=== PATIENT | male | born 1960 | race Caucasian/White ===

== ENCOUNTER 2024-07-15 15:31 | Inpatient (IN) ==
[2024-07-15] MEDS ORDERED: TORADOL TAB PO PRN (15:51)
[2024-07-15] MEDS: LOVENOX INJ 40 MG SYR SC SCH (17:13)
[2024-07-15] MEDS: NORCO 10/325 TAB PO SCH (17:15)
[2024-07-15] MEDS ORDERED: NS 250 ML IV 0 ML IV ONE (21:18)
[2024-07-15] MEDS: ANCEF VIAL 1 GRAM IVP SCH (21:34)
[2024-07-16 05:31] LABS: BASOPHILS # (AUTO) 0.1 X10^3/uL (0.0-0.1); BASOPHILS % (AUTO) 1.3 % (0.2-1.0); EOSINOPHILS # (AUTO) 0.2 x10^3/uL (0.0-0.2); EOSINOPHILS % (AUTO) 2.4 % (0.9-2.9); HEMATOCRIT 37.4 % (42.0-54.0); HEMOGLOBIN 12.8 g/dL (13.5-18.0); LYMPHOCYTES # (AUTO) 1.5 X10^3/uL (1.3-2.9); LYMPHOCYTES % (AUTO) 22.4 % (21.0-51.0); MEAN CORPUSCULAR HEMOGLOBIN 31.5 pg (27.0-34.0); MEAN CORPUSCULAR HGB CONC 34.4 g/dL (33.0-35.0); MEAN CORPUSCULAR VOLUME 91.7 fL (80.0-100.0); MEAN PLATELET VOLUME 7.8 fL (7.4-11.0); MONOCYTES # (AUTO) 0.9 x10^3/uL (0.3-0.8); MONOCYTES % (AUTO) 13.4 % (0.0-13.0); NEUTROPHILS % (AUTO) 60.5 % (42.0-75.0); PLATELET COUNT 227 X10^3/uL (150.0-450.0); RED BLOOD COUNT 4.08 X10^6/uL (4.7-6.0); WHITE BLOOD COUNT 6.7 X10^3/uL (3.6-10.0)
[2024-07-16 05:47] LABS: ALANINE AMINOTRANSFERASE 19 Units/L (12-78); ALBUMIN 2.9 g/dL (3.4-5.0); ALKALINE PHOSPHATASE 50 Units/L (46-116); ASPARTATE AMINO TRANSFERASE 13 Units/L (15-37); BLOOD UREA NITROGEN 13 mg/dL (7-18); CALCIUM 8.7 mg/dL (8.5-10.1); CARBON DIOXIDE 30.9 mmol/L (21-32); CHLORIDE 104 mmol/L (98-107); COR CA(FOR HYPOALB) 9.6 mg/dL (8.5-10.1); COR NA(FOR HYPERGLY) 142 mmol/L (136-145); CREATININE 0.98 mg/dL (0.70-1.30); GLUCOSE 120 mg/dL (65-99); POTASSIUM 4.4 mmol/L (3.5-5.1); SODIUM 142 mmol/L (136-145); TOTAL PROTEIN 6.6 g/dL (6.4-8.2); eGFR NON BLACK RACES > 60 (>60)
[2024-07-16] MEDS: ZESTRIL TAB 10 MG PO SCH (08:28)
[2024-07-17 06:09] LABS: BASOPHILS # (AUTO) 0.1 X10^3/uL (0.0-0.1); BASOPHILS % (AUTO) 1.2 % (0.2-1.0); EOSINOPHILS # (AUTO) 0.2 x10^3/uL (0.0-0.2); HEMATOCRIT 35.1 % (42.0-54.0); HEMOGLOBIN 11.9 g/dL (13.5-18.0); LYMPHOCYTES # (AUTO) 1.1 X10^3/uL (1.3-2.9); LYMPHOCYTES % (AUTO) 18.9 % (21.0-51.0); MEAN CORPUSCULAR HEMOGLOBIN 30.9 pg (27.0-34.0); MEAN CORPUSCULAR VOLUME 90.9 fL (80.0-100.0); MEAN PLATELET VOLUME 7.4 fL (7.4-11.0); MONOCYTES # (AUTO) 0.8 x10^3/uL (0.3-0.8); MONOCYTES % (AUTO) 13.5 % (0.0-13.0); NEUTROPHILS # (AUTO) 3.7 x10^3/uL (2.2-4.8); NEUTROPHILS % (AUTO) 63.4 % (42.0-75.0); PLATELET COUNT 234 X10^3/uL (150.0-450.0); RED BLOOD COUNT 3.86 X10^6/uL (4.7-6.0); WHITE BLOOD COUNT 5.9 X10^3/uL (3.6-10.0)
[2024-07-17 06:40] LABS: ALANINE AMINOTRANSFERASE 22 Units/L (12-78); ALBUMIN 2.8 g/dL (3.4-5.0); ALKALINE PHOSPHATASE 50 Units/L (46-116); ASPARTATE AMINO TRANSFERASE 15 Units/L (15-37); BLOOD UREA NITROGEN 10 mg/dL (7-18); CALCIUM 8.4 mg/dL (8.5-10.1); CHLORIDE 102 mmol/L (98-107); COR CA(FOR HYPOALB) 9.4 mg/dL (8.5-10.1); COR NA(FOR HYPERGLY) 139 mmol/L (136-145); GLUCOSE 113 mg/dL (65-99); POTASSIUM 4.2 mmol/L (3.5-5.1); SODIUM 139 mmol/L (136-145); TOTAL PROTEIN 6.7 g/dL (6.4-8.2); eGFR NON BLACK RACES > 60 (>60)
--- NOTE | 2024-07-17 08:38 | DR.PROGNOT ---
HOSPITAL PROGRESS NOTE Progress Note for Day of: Progress Note Date: 07/17/24 Chief Complaint Chief Complaint: Less pain of the lower extremity, still having ecchymosis extending to the toes Venous studies showed no evidence of DVT. White count is 5.9. Swallowing of the left lower extremity is subsiding with less ecchymosis, Homans' sign is negative. Past Medical Family Social History Allergies: Allergies acetaminophen [From Percocet] Allergy (Verified 07/15/24 17:17) pt states " after a week of taking it will itch my-self to " oxycodone [From Percocet] Allergy (Verified 07/15/24 17:17) pseudoephedrine [From Sudafed] Allergy (Verified 07/15/24 17:23) Vital Signs Vital Signs: Vital Signs Temperature 98.5 F Pulse Rate [Right Brachial] 73 Respiratory Rate 20 Respiratory Rate 20 Blood Pressure [Left Arm] 110/64 O2 Sat by Pulse Oximetry 95 Physical Exam Oriented: Normal Eyes: Normal Ear: Normal Nose: Normal Throat: Normal Respiratory: Normal Cardiovascular: Normal : Normal GI:Auscultation: Normal GI:Palpation: Normal GI: Tenderness: Normal Skin: Normal (Moderate ecchymosis extending to the toes and the swelling is subsiding, 1 area of cellulitis on the lateral aspect of the left leg measuring about a 3 x 3 cm no active drainage.) Speech Pattern: Clear Laboratory and Diagnostics 07/17/24 05:48 07/17/24 05:48 Labs: Laboratory WBC 5.9 X10^3/uL (3.6-10.0) 07/17/24 05:48 RBC 3.86 X10^6/uL (4.7-6.0) L 07/17/24 05:48 Hgb 11.9 g/dL (13.5-18.0) L 07/17/24 05:48 Hct 35.1 % (42.0-54.0) L 07/17/24 05:48 MCV 90.9 fL (80.0-100.0) 07/17/24 05:48 MCH 30.9 pg (27.0-34.0) 07/17/24 05:48 MCHC 34.0 g/dL (33.0-35.0) 07/17/24 05:48 RDW 13.0 % (11.6-16.5) 07/17/24 05:48 Plt Count 234 X10^3/uL (150.0-450.0) 07/17/24 05:48 MPV 7.4 fL (7.4-11.0) 07/17/24 05:48 Neut % (Auto) 63.4 % (42.0-75.0) 07/17/24 05:48 Lymph % (Auto) 18.9 % (21.0-51.0) L 07/17/24 05:48 Mccreary % (Auto) 13.5 % (0.0-13.0) H 07/17/24 05:48 Eos % (Auto) 3.0 % (0.9-2.9) H 07/17/24 05:48 Baso % (Auto) 1.2 % (0.2-1.0) H 07/17/24 05:48 Neut # (Auto) 3.7 x10^3/uL (2.2-4.8) 07/17/24 05:48 Lymph # (Auto) 1.1 X10^3/uL (1.3-2.9) L 07/17/24 05:48 Mccreary # (Auto) 0.8 x10^3/uL (0.3-0.8) 07/17/24 05:48 Eos # (Auto) 0.2 x10^3/uL (0.0-0.2) 07/17/24 05:48 Baso # (Auto) 0.1 X10^3/uL (0.0-0.1) 07/17/24 05:48 Absolute Nucleated RBC 0.0 /100WBC 07/17/24 05:48 Sodium 139 mmol/L (136-145) 07/17/24 05:48 Corrected Sodium 139 mmol/L (136-145) 07/17/24 05:48 Potassium 4.2 mmol/L (3.5-5.1) 07/17/24 05:48 Chloride 102 mmol/L (98-107) 07/17/24 05:48 Carbon Dioxide 31.0 mmol/L (21-32) 07/17/24 05:48 BUN 10 mg/dL (7-18) 07/17/24 05:48 Creatinine 0.90 mg/dL (0.70-1.30) 07/17/24 05:48 Est GFR (MDRD) Af Amer > 60 (>60) 07/17/24 05:48 Est GFR (MDRD) Non-Af > 60 (>60) 07/17/24 05:48 Glucose 113 mg/dL (65-99) H 07/17/24 05:48 Calcium 8.4 mg/dL (8.5-10.1) L 07/17/24 05:48 Corrected Calcium 9.4 mg/dL (8.5-10.1) 07/17/24 05:48 Total Bilirubin 0.40 mg/dL (0.2-1.0) 07/17/24 05:48 AST 15 Units/L (15-37) 07/17/24 05:48 ALT 22 Units/L (12-78) 07/17/24 05:48 Alkaline Phosphatase 50 Units/L (46-116) 07/17/24 05:48 Total Protein 6.7 g/dL (6.4-8.2) 07/17/24 05:48 Albumin 2.8 g/dL (3.4-5.0) L 07/17/24 05:48 Globulin 3.9 g/dL (2.5-4.5) 07/17/24 05:48 Albumin/Globulin Ratio 0.7 Ratio (1.1-2.1) L 07/17/24 05:48 Assessment and Plan 1: Soft tissue injury left lower extremity, no evidence of compartment syndrome. 2: Cellulitis left lower extremity secondary to the old injury. Same IV antibiotics, DVT prophylaxis, leg elevation.
[2024-07-17] MEDS ORDERED: NS 250 ML IV 25 ML IV PRN (12:55)
[2024-07-18 00:16] VITALS: O2SAT 96
[2024-07-18 06:34] LABS: BASOPHILS # (AUTO) 0.1 X10^3/uL (0.0-0.1); BASOPHILS % (AUTO) 2.4 % (0.2-1.0); EOSINOPHILS # (AUTO) 0.2 x10^3/uL (0.0-0.2); EOSINOPHILS % (AUTO) 3.3 % (0.9-2.9); HEMOGLOBIN 12.3 g/dL (13.5-18.0); LYMPHOCYTES # (AUTO) 0.9 X10^3/uL (1.3-2.9); LYMPHOCYTES % (AUTO) 15.6 % (21.0-51.0); MEAN CORPUSCULAR HEMOGLOBIN 31.1 pg (27.0-34.0); MEAN CORPUSCULAR HGB CONC 34.2 g/dL (33.0-35.0); MEAN PLATELET VOLUME 7.5 fL (7.4-11.0); MONOCYTES # (AUTO) 0.6 x10^3/uL (0.3-0.8); MONOCYTES % (AUTO) 10.8 % (0.0-13.0); NEUTROPHILS % (AUTO) 67.9 % (42.0-75.0); PLATELET COUNT 239 X10^3/uL (150.0-450.0); RED BLOOD COUNT 3.96 X10^6/uL (4.7-6.0); RED CELL DISTRIBUTION WIDTH 12.7 % (11.6-16.5); WHITE BLOOD COUNT 5.8 X10^3/uL (3.6-10.0)
[2024-07-18 06:45] LABS: ALANINE AMINOTRANSFERASE 25 Units/L (12-78); ALBUMIN 2.9 g/dL (3.4-5.0); ALKALINE PHOSPHATASE 54 Units/L (46-116); ASPARTATE AMINO TRANSFERASE 16 Units/L (15-37); BLOOD UREA NITROGEN 11 mg/dL (7-18); CALCIUM 8.9 mg/dL (8.5-10.1); CHLORIDE 102 mmol/L (98-107); COR CA(FOR HYPOALB) 9.8 mg/dL (8.5-10.1); COR NA(FOR HYPERGLY) 140 mmol/L (136-145); CREATININE 0.98 mg/dL (0.70-1.30); GLUCOSE 111 mg/dL (65-99); SODIUM 140 mmol/L (136-145); TOTAL PROTEIN 6.9 g/dL (6.4-8.2); eGFR NON BLACK RACES > 60 (>60)
[2024-07-18 08:32] VITALS: RESP 18
[2024-07-18 09:56] VITALS: BP 123/70; PULSE 93; TEMP 99.3
== END 2024-07-18 10:25 | disposition home or self-care (01) | DRG 603 ==
LOC: ER 15:31 → MED/SURG 15:41
PROVIDERS: ADMIT Surgery; ATTEND Surgery
DX: L03.116 Cellulitis of left lower limb; Y92.89 Other specified places as the place of occurrence of the external cause; S80.12XD Contusion of left lower leg, subsequent encounter; R73.09 Other abnormal glucose; M79.81 Nontraumatic hematoma of soft tissue; I10 Essential (primary) hypertension; Z87.442 Personal history of urinary calculi; E78.5 Hyperlipidemia, unspecified; W22.8XXD Striking against or struck by other objects, subsequent encounter